=== PATIENT | male | born 1960 | race Caucasian/White ===

== ENCOUNTER → 2016-09-09 | Outpatient (CLI) | payer BC ==
[~2016-09-09] MED LIST: ACYC200C PO; DOCU-109 PO; HYDR-2766 PO; LANS30CA PO; METH-38 PO; SIMV40TA3 PO
[2016-09-09 14:55] LABS: BASO # 0.1 x10^3/uL (0.0-0.2); BASO % 1 % (0-3); EOS % 5 % (0-3); HEMOGLOBIN 14.4 g/dL (13.0-17.5); LYMPH % 31 % (24-48); MEAN CORPUSCULAR HEMOGLOBIN 31 pg (25-35); MEAN CORPUSCULAR HGB CONC 35 g/dL (31-37); MEAN CORPUSCULAR VOLUME 90 fL (79-100); MONO % 11 % (0-9); NEUT % 52 % (31-73); PLATELET COUNT 237 x10^3/uL (140-400); RED BLOOD COUNT 4.58 x10^6/uL (4.30-5.70); RED CELL DISTRIBUTION WIDTH 13.9 % (11.5-14.5); WHITE BLOOD COUNT 6.5 x10^3/uL (4.0-11.0)
[2016-09-09 15:22] LABS: ALBUMIN 3.6 g/dL (3.4-5.0); ALBUMIN/GLOBULIN RATIO 1.1 (1.0-1.7); CALCIUM 9.5 mg/dL (8.5-10.1); CREATININE 0.9 mg/dL (0.7-1.3); GFR 87.6; POTASSIUM 4.2 mmol/L (3.5-5.1); TOTAL BILIRUBIN 0.4 mg/dL (0.2-1.0)
--- NOTE | 2016-09-09 18:20 | HP ---
ADMIT DATE: 09/11/2016 HISTORY OF PRESENT ILLNESS: The patient is a pleasant 56-year-old who has difficulty with low back pain and pain which radiates into his left leg. The pain tends to radiate into his left buttock and posterior thigh as well as the anterior thigh and leg. This problem started about 2 years ago without an inciting event. He rates his pain as a 4 to 5 out of 10. Standing for more than 5 minutes or walking increases his pain. He has relief with sitting or lying down. He takes [place] for pain. He has had 2 epidural steroid injections without any help. PAST MEDICAL HISTORY: None reported. PAST SURGICAL HISTORY: Sleep apnea in 1989, cholecystectomy in 2007/2008, LASIK bilaterally in 2013, and left rotator cuff in 2015. FAMILY HISTORY: The patient was adopted. SOCIAL HISTORY: Retired business services representative. . Exercises daily with walking and elliptical. Denies substance abuse. Denies tobacco use. Drinks alcohol one to two times per week. ALLERGIES: SULFA DRUGS AND SULFUR. CURRENT MEDICATIONS: Prevacid, acyclovir, simvastatin, hydrocodone/acetaminophen, Osteo Bi-Flex, fish oil, B complex, and vitamin D3. REVIEW OF SYSTEMS: A 12-point review of systems was obtained and is noncontributory except for that mentioned above. PHYSICAL EXAMINATION: NEUROSURGERY EXAMINATION: GENERAL APPEARANCE: Alert, pleasant, in no acute distress. HEAD: Normocephalic and atraumatic. SKIN: Warm and dry. MUSCULOSKELETAL: Lumbar paraspinal muscle bulk is normal, restricted range of motion of lumbar spine, [id number] tenderness of lower lumbar spine with palpation, and normal range of motion of the lower extremities bilaterally. EXTREMITIES: No clubbing, cyanosis, or edema. NEUROLOGIC: Alert and oriented x3, normal recent and remote memory, strength 5/5 in bilateral lower extremities. Sensory was intact to light touch in bilateral lower extremities. Reflexes were trace and symmetric in the lower extremities bilaterally. Positive straight leg raising on the left, negative straight leg raising on the right, normal gait. IMAGING REVIEWED: I reviewed a lumbar MRI scan. On that study, there are 2 abnormalities. First, he has left paracentral left lateral posterior disk bulge with lateral recess narrowing at L5-S1. At L3-L4, he also has severe lumbar spinal stenosis. ASSESSMENT: 1. Spinal stenosis, lumbar region. 2. Intervertebral disk disorders with radiculopathy, lumbar region. PLAN: I believe he is symptomatic from both problems. I feel the lumbar stenosis is responsible for his diffuse left leg symptoms which occur primarily in a neurogenic claudication type pattern. Additionally, I feel he is symptomatic from the left side with focal disk bulge with lateral recess narrowing at L5-S1 with his left buttock pain and positive straight leg raising. I recommended surgery to perform a left direct laminectomy at L3-L4 as well as lumbar microsurgery with microdiskectomy at L5-S1 on the left. I did discuss this with the patient in detail including the risks, benefits, and expected postoperative course. He understands. He would like to go ahead. We will make the arrangements. GOLDIE ELIAS MD DR: JENY/ilya JOB#: [id number] / [id number]
--- NOTE | 2016-09-12 12:04 | HP ---
ADMIT DATE: 09/11/2016 HISTORY OF PRESENT ILLNESS: The patient is a pleasant 56-year-old who has difficulty with low back pain and pain which radiates into his left leg. The pain tends to radiate into his left buttock and posterior thigh as well as the anterior thigh and leg. This problem started about 2 years ago without an inciting event. He rates his pain as a 4 to 5 out of 10. Standing for more than 5 minutes or walking increases his pain. He has relief with sitting or lying down. He takes [place] for pain. He has had 2 epidural steroid injections without any help. PAST MEDICAL HISTORY: None reported. PAST SURGICAL HISTORY: Sleep apnea in 1989, cholecystectomy in 2007/2008, LASIK bilaterally in 2013, and left rotator cuff in 2015. FAMILY HISTORY: The patient was adopted. SOCIAL HISTORY: Retired chief human resources officer. . Exercises daily with walking and elliptical. Denies substance abuse. Denies tobacco use. Drinks alcohol one to two times per week. ALLERGIES: SULFA DRUGS AND SULFUR. CURRENT MEDICATIONS: Prevacid, acyclovir, simvastatin, hydrocodone/acetaminophen, Osteo Bi-Flex, fish oil, B complex, and vitamin D3. REVIEW OF SYSTEMS: A 12-point review of systems was obtained and is noncontributory except for that mentioned above. PHYSICAL EXAMINATION: NEUROSURGERY EXAMINATION: GENERAL APPEARANCE: Alert, pleasant, in no acute distress. HEAD: Normocephalic and atraumatic. SKIN: Warm and dry. MUSCULOSKELETAL: Lumbar paraspinal muscle bulk is normal, restricted range of motion of lumbar spine, [id number] tenderness of lower lumbar spine with palpation, and normal range of motion of the lower extremities bilaterally. EXTREMITIES: No clubbing, cyanosis, or edema. NEUROLOGIC: Alert and oriented x3, normal recent and remote memory, strength 5/5 in bilateral lower extremities. Sensory was intact to light touch in bilateral lower extremities. Reflexes were trace and symmetric in the lower extremities bilaterally. Positive straight leg raising on the left, negative straight leg raising on the right, normal gait. IMAGING REVIEWED: I reviewed a lumbar MRI scan. On that study, there are 2 abnormalities. First, he has left paracentral left lateral posterior disk bulge with lateral recess narrowing at L5-S1. At L3-L4, he also has severe lumbar spinal stenosis. ASSESSMENT: 1. Spinal stenosis, lumbar region. 2. Intervertebral disk disorders with radiculopathy, lumbar region. PLAN: I believe he is symptomatic from both problems. I feel the lumbar stenosis is responsible for his diffuse left leg symptoms which occur primarily in a neurogenic claudication type pattern. Additionally, I feel he is symptomatic from the left side with focal disk bulge with lateral recess narrowing at L5-S1 with his left buttock pain and positive straight leg raising. I recommended surgery to perform a left direct laminectomy at L3-L4 as well as lumbar microsurgery with microdiskectomy at L5-S1 on the left. I did discuss this with the patient in detail including the risks, benefits, and expected postoperative course. He understands. He would like to go ahead. We will make the arrangements. GOLDIE ELIAS MD DR: JENY/ilya JOB#: [id number] / [id number]
[2016-09-13 14:16] VITALS: BP 139/78
== END | disposition home or self-care (01) ==
LOC: SURGPAT 13:44
PROVIDERS: ATTEND Neurological Surgery
DX: M48.06 Spinal stenosis, lumbar region (principal); M51.06 Intervertebral disc disorders with myelopathy, lumbar region
CPT/HCPCS: 36415; 80053; 85027; 87641

== ENCOUNTER → 2016-09-13 | Day surgery (SDC) | payer BC ==
[~2016-09-13] VITALS: Ht 193 cm; Wt 129.3 kg
[~2016-09-13] MED LIST changes: +0.9 % SODIUM CHLORIDE 50 ML VIAL. IJ ONE; +BACITRACIN 50,000 UNIT in IV NORMAL SALINE 1000ML BAG 1,000 ML IRR ONE; +BUPIVAC MPF-EPI 0.5%-1:200000 30 ML VIAL. ONE; +DESFLURANE > 120 MINUTES IH ONE; +DEXAMETHASONE SOD PHOS 20 MG/5 ML VIAL. ONE; -DOCU-109 PO; +DOCU-27 PO; +GELATIN SPONGE SIZE 100. ONE; +HYDR-2672 PO; -HYDR-2766 PO; +HYDROcodone/APAP 10/325 1 TAB TABLET ONE; +HYDROcodone/APAP 10/325 1 TAB TABLET PO ONE; +HYDROmorphone 2 MG/ML VIAL IV PRN; +IV RINGERS,LACTATED 1000ML 1,000 ML IV SCH; +KETOROLAC 60 MG/2 ML INJ FOR OR. ONE; +LIDOCAINE 1% 1 ML SYRINGE. ID PRN; +LIDOCAINE 2% PF Vial for OR 5 ML VIAL. ONE; +MIDAZOLAM HCL/PF 2 MG/2 ML VIAL. ONE; +MINERAL OIL/PETROLATUM,WHITE OPHTH OINT 3.5GM TUBE. ONE; +MORPHINE SULFATE 2 MG/ML DISP.SYRIN. IV PRN; +ONDANSETRON PF 4 MG/2 ML VIAL. IV PRN; +ONDANSETRON PF 4 MG/2 ML VIAL. ONE; +PHENYLEPHRINE 10 MG/ML VIAL. ONE; +PHENYLEPHRINE in 0.9% NACL PF 1 MG/10 ML DISP.SYRIN. IV ONE; +PROCHLORPERAZINE 10 MG/2 ML VIAL. IV PRN; +PROPOFOL 20 ML IV ONE; +PROPOFOL 50 ML IV ONE; +REMIFENTANIL 2 MG VIAL. IV ONE; +ROCURONIUM 50 MG/5 ML VIAL. ONE; +THROMBIN TOPICAL 20,000 UNIT SPRAY.SYRN KIT TP ONE; +fentaNYL PF VIAL 100 MCG/2 ML VIAL IV PRN; +fentaNYL PF VIAL 100 MCG/2 ML VIAL ONE
--- NOTE | 2016-09-13 12:10 | DISCH ---
DISCHARGE INSTRUCTIONS Condition on Discharge Condition on Discharge: Stable Activity After Discharge Activity Instructions for Disc: Activity as tolerated, Avoid exertion Other activity instructions: no driving for a week Bathing Instructions: Shower-keep dressing dry Lifting Instructions after Dis: No heavy lifting, No pulling or pushing, Do not lift >10 pounds Driving Instructions after Dis: Do not drive Diet after Discharge Additional Diet Restrictions: resume home diet Wound Incision Care Wound/Incision Care: Ice to area for comfort Other wound/incision instructi: may remove dressing in 48 hrs if dry then may shower- no soaking Contacting the after DC Call your doctor for: Concerns you may have Follow-Up Follow up with: Dr. Elias's nurse in 2 weeks [phone] GOLDIE ELIAS MD September 13, 2016 12:10
[2016-09-13] MEDS: fentaNYL PF VIAL 100 MCG/2 ML VIAL IV PRN ×2 (13:00→13:18)
[2016-09-13 14:16] VITALS: BP 139/78
--- NOTE | 2016-09-13 16:27 | OP ---
DATE OF SURGERY: PREOPERATIVE DIAGNOSES: Lumbar spinal stenosis L3-L4, lateral recess stenosis, L5-S1. OPERATION PERFORMED: 1. Lumbar laminectomy L3-L4, left direct decompression of dura and nerve root. 2. Hemilaminotomy and microdecompression left L5-S1 for severe lateral recess stenosis The operation was done with EMG monitoring, fluoroscopy, and microscopic dissection. PANEL BEATER: Talon Ochoa MD, assisted with the surgery, assisted with the exposure, the microdecompression at both levels as well as the closure. OPERATIVE INDICATIONS: The patient is a very pleasant 56-year-old man who developed intractable back and left leg pain, which failed conservative measures. On imaging studies, he had the above-mentioned findings and I recommended lumbar microsurgery at L3-L4 and L5-S1 on the left. I discussed with him the surgery and the risks, technique and the expected postoperative course, he did have some narrowing at L4-L5, but I felt that this left thickened and the other levels and felt that his symptoms were due primarily to the problems at L3-L4 and L5-S1. I discussed with him the surgery and the risks involved, the technique and he understood and wished to go ahead. DESCRIPTION OF PROCEDURE: Following general endotracheal anesthesia, the patient was positioned prone on the Rodrick table with lumbar regions prepped and draped in standard fashion. CASSANDRA hose and AV impulse boots were applied for DVT prophylaxis. A microscope was draped. Fluoroscopy was draped and brought into field. Monitoring was established. Ancef 2 grams given less than 1 hour prior to initiation of surgery. Using fluoroscopic guidance, incision was made over the L3-L4 interspace. I dissected down through the skin and subcutaneous tissue, reflected the paraspinal muscles and placed a [place] micro disk retractor. I brought in the microscope and using the high speed air drill, I burred down a generous hemilaminotomy. I tilted the table away from me and drilled across to the midline and then undercut to the contralateral side removing a significant amount of fat from the posterior midline. Working laterally then I performed a hemilaminotomy and I did a micro foraminotomy and then freed up and trimmed away the ligament working from medial to lateral. I trimmed lateral ligament away along with the hypertrophic facet and as I worked, the region became very well decompressed. I palpated the disk, it was firm and no diskectomy was warranted. I then irrigated copiously, removed the retractor, obtained hemostasis in the muscle and then made a second incision. As I moved inferiorly over the L5-S1 interspace and was taken down to skin and subcutaneous tissue and reflected the paraspinal muscles and placed a [place] micro disk retractor confirmed my position fluoroscopically. I brought in the high speed air drill, again through the microscope and using microscopic technique. I burred down a very generous hemilaminotomy. I then trimmed away the thickened ligamentum flavum, however, the ligament was densely scarred to the dura underneath and this made removal difficulty. There was also some calcification within the deep lateral ligament, which enfolded the dura and this required a considerable amount of delicate microdissection to free up. I did perform partial foraminotomy at this level. I worked superiorly and I actually visualized the L5 root working gently to fully decompress the entire region, both the L5 and S1 roots were densely scarred. The S1 root was scarred to ligament and facet and the L5 likewise to ligament. The disk was bulging slightly, but very firm and I did not think that a diskectomy was warranted in this case, I fully decompressed the entire region, the dura which initially, was severely compressed was very free with the nerve root was very free. I irrigated copiously, at this point, I did coagulate a few epidural veins. I did use small amounts of bone wax where necessary for any bone bleeding. I removed the retractor, obtained hemostasis in the muscle and then I closed the fascia both the L3-L4 and L5-S1 with absorbable sutures after irrigating again and then subcutaneous tissue was closed, the skin was closed with 4-0 subcuticular stitch. The operation went very well. I was quite pleased with the surgery. GOLDIE ELIAS MD DR: JENY/ilya JOB#: [id number] / [id number]
== END | disposition home or self-care (01) ==
LOC: SURG 07:08
PROVIDERS: ATTEND Neurological Surgery
DX: M48.06 Spinal stenosis, lumbar region (principal); E78.00 Pure hypercholesterolemia, unspecified; M19.90 Unspecified osteoarthritis, unspecified site; Z86.69 Personal history of other diseases of the nervous system and sense organs; Z90.49 Acquired absence of other specified parts of digestive tract
CPT/HCPCS: 63005; 76000; 97161; J0690; J1100; J1885; J2250; J2370; J2405; J2704; J3010; J3490; J7030

== ENCOUNTER 2017-04-17 03:29 | Emergency (ER) | payer BC ==
[~2017-04-17] VITALS: Ht 193 cm; Wt 127.0 kg
[~2017-04-17 03:29] MED LIST changes: -0.9 % SODIUM CHLORIDE 50 ML VIAL. IJ ONE; -BACITRACIN 50,000 UNIT in IV NORMAL SALINE 1000ML BAG 1,000 ML IRR ONE; -BUPIVAC MPF-EPI 0.5%-1:200000 30 ML VIAL. ONE; -DESFLURANE > 120 MINUTES IH ONE; -DEXAMETHASONE SOD PHOS 20 MG/5 ML VIAL. ONE; +DOCU-109 PO; -DOCU-27 PO; -GELATIN SPONGE SIZE 100. ONE; -HYDR-2672 PO; +HYDR-2766 PO; -HYDROcodone/APAP 10/325 1 TAB TABLET ONE; -HYDROcodone/APAP 10/325 1 TAB TABLET PO ONE; -HYDROmorphone 2 MG/ML VIAL IV PRN; -IV RINGERS,LACTATED 1000ML 1,000 ML IV SCH; -KETOROLAC 60 MG/2 ML INJ FOR OR. ONE; -LIDOCAINE 1% 1 ML SYRINGE. ID PRN; -LIDOCAINE 2% PF Vial for OR 5 ML VIAL. ONE; -MIDAZOLAM HCL/PF 2 MG/2 ML VIAL. ONE; -MINERAL OIL/PETROLATUM,WHITE OPHTH OINT 3.5GM TUBE. ONE; -MORPHINE SULFATE 2 MG/ML DISP.SYRIN. IV PRN; -ONDANSETRON PF 4 MG/2 ML VIAL. IV PRN; -ONDANSETRON PF 4 MG/2 ML VIAL. ONE; -PHENYLEPHRINE 10 MG/ML VIAL. ONE; -PHENYLEPHRINE in 0.9% NACL PF 1 MG/10 ML DISP.SYRIN. IV ONE; -PROCHLORPERAZINE 10 MG/2 ML VIAL. IV PRN; -PROPOFOL 20 ML IV ONE; -PROPOFOL 50 ML IV ONE; -REMIFENTANIL 2 MG VIAL. IV ONE; -ROCURONIUM 50 MG/5 ML VIAL. ONE; -THROMBIN TOPICAL 20,000 UNIT SPRAY.SYRN KIT TP ONE; -fentaNYL PF VIAL 100 MCG/2 ML VIAL IV PRN; -fentaNYL PF VIAL 100 MCG/2 ML VIAL ONE
[2017-04-17 03:38] VITALS: BP 129/62
[2017-04-17] MEDS ORDERED: KETOROLAC 30 MG/ML INJ. IM ONE (04:30)
[2017-04-17] MEDS ORDERED: ONDANSETRON ODT 4 MG TAB.RAPDIS. PO ONE (04:30)
[2017-04-17] MEDS ORDERED: ORPHENADRINE CITRATE 60 MG/2 ML VIAL. IM ONE (04:30)
[2017-04-17] MEDS ORDERED: HYDROmorphone 2 MG/ML VIAL IM ONE (04:30)
[2017-04-17] MEDS ORDERED: KETOROLAC 60 MG/2 ML INJ. IM ONE (04:30)
[2017-04-17] MEDS ORDERED: HYDR-971 PO (04:31)
[2017-04-17] MEDS ORDERED: CYCL10TA2 PO (04:31)
[2017-04-17] MEDS ORDERED: IBUP-1007 PO (04:31)
--- NOTE | 2017-04-17 04:32 | PHYS DOC ---
Past Medical History Past Medical History: High Cholesterol Past Surgical History: Appendectomy, Tonsillectomy, Other Additional Past Surgical Histo: BACK SURGERY, L ROTATOR CUFF, SLEEP APNEA, SEPTUM Alcohol Use: Occasionally Drug Use: None Adult General Chief Complaint Chief Complaint: LOWER EXT PAIN HPI HPI Patient is a 56 year old gentleman with history significant for lower back problems in the past status post laminectomy and discectomy by Dr. Hinds presents to the ER today secondary to pain to his right buttocks radiating down his right lower extremity that started earlier this morning when he woke up. Patient reports he has been ambulate on it. Patient reports he thought he had to the chiropractor to help him feel better however he was unable to get access to a chiropractor today. Patient reports she has not utilized any pain medications including ibuprofen and Tylenol or muscle relaxants prior to coming into the ER. Patient denies any history of hypertension diabetes lung liver or kidney problems. Patient does not smoke drink or do any drugs. Patient has had no other surgeries. Patient has any fevers shakes chills nausea vomiting diarrhea chest pain shortness of breath dysuria frequency urgency or hematuria. Patient reports pain increases with rotation of his hip however when he is able to walk in a straight line he has minimal discomfort. Patient no loss of bowel or bladder function. Patient has no weakness his upper or lower 70s. Patient is expressing paresthesias down his right leg. Review of systems: Constitutional: Denies fever or chills Eyes: Denies change in visual acuity, redness, or eye pain HENT: Denies nasal congestion or sore throat All other systems were reviewed and found to be within normal limits, except as documented in this note. Physical exam Constitutional: Well developed, well nourished, no acute distress, non-toxic appearance. HENT: Normocephalic, atraumatic, bilateral external ears normal, oropharynx moist, no oral exudates, nose normal. Eyes: PERRLA, EOMI, conjunctiva normal, no discharge. Neck: Normal range of motion, no tenderness, supple, no stridor. Cardiovascular:Heart rate regular rhythm, Lungs & Thorax: Bilateral breath sounds clear to auscultation Abdomen: Nondistended. Skin: Warm, dry, no erythema, no rash. Back: No tenderness, no CVA tenderness. Extremities: No tenderness, no cyanosis, no clubbing, ROM intact, no edema. Neurologic: Alert and oriented X 3, normal motor function, normal sensory function, no focal deficits noted. Psychologic: Affect normal, judgement normal, mood normal. ER physical exam is significant for: Patient was tenderness to palpation to his right sciatic groove. Patient has no tenderness to palpation to his C-spine T- spine or L-spine. Patient is neurologically intact. Patient is 5 out of 5 strength to his upper and lower semis. Patient has good hip flexion and extension although it is limited range of motion secondary to pain. Patient has discomfort with external rotation of hip but has no discomfort with flexion of hip. X-ray of pelvis reveals no acute fractures. As interpreted by ER physician. Assessment and plan: 1. 56-year-old gentleman who presents here today with pain is consistent with sciatica. Patient is neurologically intact. Patient does not present with signs or symptoms O be concerning for an epidural abscess. 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 Patient be given adequate analgesia in the ER will be discharged home with instructions for treatment of sciatica and instructions to follow-up with Dr. Hinds for further management of his pain if need be. Patient was given IM Norflex, Dilaudid, and Toradol in the ED as well as Zofran. Patient be sent home with Motrin and Flexeril and Lortab to help for the next couple days. Current Medications Current Medications Current Medications Medications (Trade) Dose Ordered Sig/Kim Start Time Stop Time Status Last Admin Dose Admin Hydromorphone HCl (Dilaudid) 1 mg 1X ONCE 04/17/17 04:30 04/17/17 04:31 Ketorolac Tromethamine (Toradol Im) 30 mg 1X ONCE 04/17/17 04:30 04/17/17 04:30 DC Ketorolac Tromethamine (Toradol) 30 mg 1X ONCE 04/17/17 04:30 04/17/17 04:31 Ondansetron HCl (Zofran Odt) 4 mg 1X ONCE 04/17/17 04:30 04/17/17 04:31 Orphenadrine Citrate (Norflex) 60 mg 1X ONCE 04/17/17 04:30 04/17/17 04:31 Allergies Allergies Allergies Coded Allergies Type Severity Reaction Last Updated Verified Sulfa (Sulfonamide Antibiotics) Allergy Intermediate 09/13/16 Yes Current Patient Data Vital Signs Vital Signs Date Time Temp Pulse Resp B/P (MAP) Pulse Ox O2 Delivery O2 Flow Rate FiO2 04/17/17 03:38 98.3 86 16 98 Room Air 98.3 EKG EKG [] Radiology/Procedures Radiology/Procedures [] Course & Med Decision Making Course & Med Decision Making Pertinent Labs and Imaging studies reviewed. (See chart for details) [] Dragon Disclaimer Dragon Disclaimer This electronic medical record was generated, in whole or in part, using a voice recognition dictation system. Departure Departure Impression: Primary Impression: Sciatica Disposition: HOME, SELF-CARE Condition: IMPROVED Referrals: ANTWAN LORENZ (PCP) GOLDIE ELIAS MD Patient Instructions: Sciatica with [facility] Script[facility] Hydrocodone/Apap 5-325 (NORCO 5-325 TABLET) 1 Each Tablet 1 TAB PO QID Y for PAIN, #10 TAB Prov: LESLIE FERNANDEZ MD 04/17/17 Ibuprofen (IBUPROFEN) 600 Mg Tablet 600 MG PO PRN Q6HRS Y for PAIN, #20 TAB Prov: LESLIE FERNANDEZ MD 04/17/17 Cyclobenzaprine Hcl (CYCLOBENZAPRINE HCL) 10 Mg Tablet 10 MG PO TID Y for MUSCLE PAIN, #20 TAB Prov: LESLIE FERNANDEZ MD 04/17/17 LESLIE FERNANDEZ MD Apr 17, 2017 04:31
--- NOTE | 2017-04-17 07:45 | RAD ---
AP PELVIS Clinical Indication: pain right hip Comparison: None. Findings: There is no acute pelvic fracture. The sacroiliac joints are symmetric. On single view, the hip joints are intact. This does not constitute a diagnostic evaluation of the right hip. 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 Sacral arcuate lines are intact. There is no diastasis of the symphysis pubis. Soft tissues unremarkable. IMPRESSION: No acute pelvic fracture.
== END 2017-04-17 04:56 | disposition home or self-care (01) ==
LOC: ER 03:29
DX: M54.41 Lumbago with sciatica, right side (principal); E78.00 Pure hypercholesterolemia, unspecified; G47.30 Sleep apnea, unspecified; Z88.2 Allergy status to sulfonamides
CPT/HCPCS: 72170; 96372; 99284; J1170; J1885; J2360; Q0162